=== PATIENT | male | born 1985 | race Caucasian/White ===

== ENCOUNTER → 2018-01-20 | Outpatient (CLI) | payer OTHER ==
--- NOTE | 2018-01-20 13:56 | XR ---
EXAMINATION TYPE: XR hand complete LT DATE OF EXAM: 01/20/2018 CLINICAL HISTORY: Pain and swelling TECHNIQUE: Frontal, lateral and oblique images of the left hand are obtained. COMPARISON: None. FINDINGS: There is no acute fracture/dislocation evident in the left hand. The joint spaces in the l eft hand appear within normal limits. The overlying soft tissue appears unremarkable. IMPRESSION: Unremarkable study.
== END ==
LOC: RADXRMAIN 13:19
PROVIDERS: ATTEND Emergency Medicine
DX: M65.842 Other synovitis and tenosynovitis, left hand (principal)

== ENCOUNTER 2018-11-06 17:38 | Emergency (ER) | payer OTHER ==
[2018-11-06 17:52] VITALS: TEMP 98.1
--- NOTE | 2018-11-06 18:36 | XR ---
EXAMINATION TYPE: XR foot limited RT DATE OF EXAM: 11/06/2018 COMPARISON: NONE HISTORY: Pain TECHNIQUE: 2 views FINDINGS: There is nondisplaced fracture of the distal shaft of the proximal phalanx of the little to e. There is a mild valgus deformity. There is no dislocation. IMPRESSION: Fracture of the little toe as above.
[2018-11-06] MEDS ORDERED: LIDOCAINE 1% INJ 10MG/ML (20 ML MDV) SQ ONE (19:05)
[2018-11-06 19:25] VITALS: BP 122/76; PULSE 69; RESP 16
--- NOTE | 2018-11-06 20:06 | ED ---
General Adult HPI - General Chief complaint: Extremity Injury, Lower Stated complaint: toe injury Time Seen by Provider: 11/06/18 17:54 Source: patient Mode of arrival: ambulatory Limitations: no limitations - History of Present Illness Initial comments: Patient is a 33-year-old male presenting to emergency Department with a stub right little toe. Patient reports he stubbed his right little toe earlier today on the couch. Patient reports a bony deformity of the fifth right toe. Patient reports mild pain that is exacerbated when palpating the toe. Patient reports decreased range of motion. Patient denies edema or skin discoloration in the area of injury. Patient denies taking any [id number] medication to alleviate the symptoms. - Related Data Previous Rx's Medication Instructions Recorded Cyclobenzaprine [Flexeril] 10 mg PO TID PRN #15 tab 02/09/15 Ibuprofen [Motrin] 600 mg PO Q8HR PRN #30 tab 02/09/15 Allergies Allergy/AdvReac Type Severity Reaction Status Date / Time No Known Allergies Allergy Verified 11/06/18 17:53 Review of Systems ROS Statement: Those systems with pertinent positive or pertinent negative responses have been documented in the HPI. ROS Other: All systems not noted in ROS Statement are negative. Past Medical History Past Medical History: No Reported History History of Any Multi-Drug Resistant Organisms: None Reported Past Surgical History: Orthopedic Surgery Past Psychological History: No Psychological Hx Reported Smoking Status: Current every day smoker Past Alcohol Use History: Rare Past Drug Use History: None Reported General Exam - General Exam Comments Initial Comments: General: Well-developed well-nourished distress HEENT: Normocephalic/atraumatic, PERLL, pharynx erythema, swallowing well, EAC no erythema, no exudates, TM clear, no cervical lymph nodes Neck: Supple, nontender, trachea midline Chest/Lungs: Normal respirations, no signs of respiratory distress clear to ausc ultation bilaterally no wheezes, rales, rhonchi Cardiac: Regular rate and rhythm, normal S1-S2, no murmurs rubs or gallops Abdomen/GI: Soft nontender, bowel sounds equal or quadrant x4, no guarding, no rebound no CVA tenderness Musculoskeletal: Tenderness with palpation on the right fifth toe, bony deformity and lateral deviation of the right fifth toe, limited range of motion due to pain, +2 dorsalis pedis and posterior tibialis, no edema or erythema noted to the site of injury, Skin: [Warmth, no rashes or lesions, no cyanosis or diaphoresis] Neurologic: [AAO x 3, CN 2-12 intact, ] Psychiatric: [Mood and affect normal, judgment normal] Limitations: no limitations Course Vital Signs 11/06/18 11/06/18 11/06/18 17:46 19:24 20:19 Temperature 98.1 F 98.1 F Pulse Rate 81 69 69 Respiratory 18 16 16 Rate Blood Pressure 136/85 122/76 122/76 O2 Sat by Pulse 99 97 97 Oximetry Procedures - Orthopedic Fracture Reduction Fracture #1 Consent Obtained: verbal consent Side: left Fracture Reduction Location: toe (Fifth right) Analgesia: digital block Technique: direct manipulation Post-Reduction Neuro Exam: intact Post-Reduction Vascular Exam: intact Patient Tolerated Procedure: well - Orthopedic Splinting/Casting Injury #1 Side: right Lower Extremity Injury Location: toe (5th toe) Lower Extremity Immobilizer: post-op shoe, arthur tape Medical Decision Making - Medical Decision Making Patient is a 33-year-old male presenting to emergency Department with a stubborn right little toe. X-ray is showing a closed fracture of the proximal phalanges of the right fifth toe. The toe was reduced back in place using local anesthesia. The toe was arthur taped to the fourth digit and patient was given a postop shoe. Patient advised to follow-up with orthopedics. Patient advised to alternate between Tylenol and ibuprofen for pain control, apply compress to minimize pain. Strict return parameters were thoroughly discussed the patient was understanding and agreeable. Case discussed with physician. Disposition Clinical Impression: Fracture of fifth toe, right, closed Disposition: HOME SELF-CARE Condition: Stable Instructions (If sedation given, give patient instructions): Toe Fracture (ED) Additional Instructions: Please follow with orthopedics. Please return to emergency department if symptoms worsen. Is patient prescribed a controlled substance at d/c from ED?: No Referrals: None,Stated [Primary Care Provider] - 1-2 days Phill Mandujano DO [Doctor of Osteopathic Medicine] - 1-2 days Time of Disposition: 20:06
== END 2018-11-06 20:22 | disposition home or self-care (01) ==
LOC: EC 17:38
DX: S92.511A Displaced fracture of proximal phalanx of right lesser toe(s), initial encounter for closed fracture (principal); F17.200 Nicotine dependence, unspecified, uncomplicated; W22.8XXA Striking against or struck by other objects, initial encounter
CPT/HCPCS: 73620; 99283; 28515; J2001

== ENCOUNTER 2021-09-23 21:37 | Emergency (ER) | payer OTHER ==
[2021-09-23 21:51] VITALS: BP 148/85; PULSE 81; RESP 16; TEMP 98
[2021-09-23] MEDS ORDERED: DIPH,PERTUS(ACELL)TETVAC-LF 0.5 ML VIAL IM ONE (23:12)
[2021-09-23] MEDS ORDERED: LIDOCAINE 1% INJ 10MG/ML (5 ML VIAL-PF) SQ ONE (23:38)
--- NOTE | 2021-09-24 00:14 | ED ---
Wound/Laceration HPI - General Chief Complaint: Wound/Laceration Stated Complaint: Laceration R Hand @1300 Time Seen by Provider: 09/23/21 22:54 Source: patient Mode of arrival: ambulatory Limitations: no limitations - History of Present Illness Initial Comments: Patient is a 28-year-old male presenting with chief complaint of laceration. Patient cut his right thumb at work on a pipe at 1:00 today. He attempted to close the wound with superglue. Later on in the afternoon the wound began bleeding profusely, he sought attention in the ER. He does not remember the date of his last tetanus. Denies any numbness, tingling, weakness, loss of range of motion. - Related Data Previous Rx's Medication Instructions Recorded Cyclobenzaprine [Flexeril] 10 mg PO TID PRN #15 tab 02/09/15 Ibuprofen [Motrin] 600 mg PO Q8HR PRN #30 tab 02/09/15 Allergies Allergy/AdvReac Type Severity Reaction Status Date / Time No Known Allergies Allergy Verified 09/23/21 21:51 Review of Systems ROS Statement: Those systems with pertinent positive or pertinent negative responses have been documented in the HPI. ROS Other: All systems not noted in ROS Statement are negative. Past Medical History Past Medical History: No Reported History History of Any Multi-Drug Resistant Organisms: None Reported Past Surgical History: Orthopedic Surgery Past Psychological History: No Psychological Hx Reported Smoking Status: Current every day smoker Past Alcohol Use History: Rare Past Drug Use History: None Reported General Exam Limitations: no limitations General appearance: alert, in no apparent distress Head exam: Present: atraumatic, normocephalic, normal inspection Eye exam: Present: normal appearance, EOMI. Absent: scleral icterus, periorbital swelling Neck exam: Present: normal inspection Neurological exam: Present: alert, oriented X3, CN II-XII intact Psychiatric exam: Present: normal affect, normal mood Skin exam: Present: warm, dry, normal color. Absent: rash Expanded Type of lesion: Present: laceration (2 cm curved laceration to the distal end of the right thumb) Course Vital Signs 09/23/21 21:49 Temperature 98 F Pulse Rate 81 Respiratory 16 Rate Blood Pressure 148/85 O2 Sat by Pulse 99 Oximetry Procedures - Laceration Laceration #1 Consent Obtained: verbal consent Indication: laceration Site: hand Size (cm): 2 Description: irregular Depth: simple, single layer Anesthetic Used: lidocaine 1% Anesthesia Technique: local infiltration Amount (mls): 3 Pre-repair: wound explored, irrigated extensively, deep structures intact Type of Sutures: nylon Size of Sutures: 4-0 Number of Sutures: 4 Technique: simple, interrupted Patient Tolerated Procedure: well Medical Decision Making - Medical Decision Making Patient is a 36-year-old male presenting with chief complaint of laceration to the right thumb. This was obtained this afternoon, he attempted to close the wound superglue, however the wound opened back up and began bleeding again. On examination he has full sensation, strength, range of motion. Wound was soaked in sterile water and iodine, and superglue was removed. No foreign body was seen on inspection. Finger was anesthetized with 1% lidocaine without epi, 4 simple interrupted sutures were applied using 4-0 nylon. Patient's tetanus is updated today. Patient tolerated the procedure well. Educated on signs of infection. Follow-up with PCP in one week. Sutures may be removed in 10-14 days. I discussed return parameters and answered all questions. Patient conveyed verbal understanding and agreed to the plan. My attending is Dr. Heck. Disposition Clinical Impression: Laceration Disposition: HOME SELF-CARE Condition: Good Instructions (If sedation given, give patient instructions): Care For Your Stitches (ED), Finger Laceration (ED) Additional Instructions: Sutures may be removed in 10-14 days. This may be done this ER, your local urgent care, or your PCP. Report back to ER if any new or worsening symptoms. Monitor for signs of infection, including but not limited to redness, swelling, discharge, warmth, fever, chills. Keep the wound clean and dry and covered. Is patient prescribed a controlled substance at d/c from ED?: No Referrals: None,Stated [Primary Care Provider] - 10/01/21 Time of Disposition: 00:14
== END 2021-09-24 00:38 | disposition home or self-care (01) ==
LOC: EC 21:37
DX: S61.011A Laceration without foreign body of right thumb without damage to nail, initial encounter (principal); F17.200 Nicotine dependence, unspecified, uncomplicated; Z23 Encounter for immunization; W26.8XXA Contact with other sharp object(s), not elsewhere classified, initial encounter; Y99.0 Civilian activity done for income or pay
CPT/HCPCS: 90715; 99282; 12001; 90471; J2001

== ENCOUNTER 2023-08-07 06:40 | Emergency (ER) | payer SELFPAY ==
[2023-08-07 07:05] VITALS: RESP 18
--- NOTE | 2023-08-07 07:07 | ED ---
Upper Extremity HPI - General Chief Complaint: Extremity Injury, Upper Stated Complaint: left pinky pain Time Seen by Provider: 08/07/23 06:47 Source: patient, RN notes reviewed Mode of arrival: ambulatory Limitations: no limitations - History of Present Illness Initial Comments: This is a 38-year-old male who presents to the emergency department for an injury to the left pinky finger. States that he was outside getting ready to go hunting and he slipped in mud. He tried to catch himself with his hands and in the process he injured his left pinky finger. He is still able to move it, but states that it is painful and appears deformed. Denies hitting his head or sustaining any other injuries. - Related Data Previous Rx's Medication Instructions Recorded Cyclobenzaprine [Flexeril] 10 mg PO TID PRN #15 tab 02/09/15 Ibuprofen [Motrin] 600 mg PO Q8HR PRN #30 tab 02/09/15 Allergies Allergy/AdvReac Type Severity Reaction Status Date / Time No Known Allergies Allergy Verified 09/23/21 21:51 Review of Systems ROS Statement: Those systems with pertinent positive or pertinent negative responses have been documented in the HPI. ROS Other: All systems not noted in ROS Statement are negative. Past Medical History Past Medical History: No Reported History History of Any Multi-Drug Resistant Organisms: None Reported Past Surgical History: Orthopedic Surgery Past Psychological History: No Psychological Hx Reported Smoking Status: Current every day smoker Past Alcohol Use History: Rare Past Drug Use History: None Reported General Exam Limitations: no limitations General appearance: alert, in no apparent distress Head exam: Present: atraumatic, normocephalic, normal inspection Respiratory exam: Present: normal lung sounds bilaterally. Absent: respiratory distress, wheezes, rales, rhonchi, stridor Cardiovascular Exam: Present: regular rate, normal rhythm, normal heart sounds. Absent: systolic murmur, diastolic murmur, rubs, gallop, clicks Neurological exam: Present: alert, oriented X3, CN II-XII intact Psychiatric exam: Present: normal affect, normal mood Skin exam: Present: warm, dry, intact, normal color. Absent: rash Course Vital Signs 08/07/23 08/07/23 08/07/23 06:40 08:25 09:31 Temperature 97.8 F 98.1 F 98.1 F Pulse Rate 84 87 74 Respiratory 18 18 18 Rate Blood Pressure 134/86 135/87 142/98 O2 Sat by Pulse 97 97 97 Oximetry Procedures - Nerve Block Consent Obtained: verbal consent Local Anesthetic Used: Other (Lidocaine 1% with Sensorcaine 0.5%) Amount of anesthesia used: 5 Side: left Nerve Blocks: digital Procedure Successful: Yes - Orthopedic Joint Reduction Joint #1 Consent Obtained: verbal consent Side: left Joint Reduction Location: finger Analgesia: digital block Local Anesthetic Used: Lidocaine 1%, Bupivacaine 0.5% Amount of Anesthetic Used (mLs): 5 - Orthopedic Splinting/Casting Injury #1 Side: left Upper Extremity Injury Location: finger Upper Extremity Immobilizer: aluminum form splint Medical Decision Making - Medical Decision Making This is a 38 year old male who presents to the emergency department for an injury to the left pinky finger. Was pt. sent in by a medical professional or institution? @ -No Did you speak to anyone other than the patient for history? @ -No Did you review nursing and triage notes? @ -Yes, and I agree, it is accurate with regards to the patient's symptoms. Were old charts reviewed? @ -No Differential Diagnosis? @ -Differential Musculoskeletal: Muscular strain, contusion, ligament sprain, fracture, arthritis, septic arthritis, bursitis, cellulitis, muscle spasm, nerve compression, DVT, arterial occlusion, herpes zoster, electrolyte abnormality, tumor.... This is not meant to be in all inclusive list EKG interpreted by me (3pts min.)? @ -Not obtained X-rays interpreted by me (1pt min.)? @ -X-ray of the left fifth finger obtained. My interpretation identifies a fracture of the middle phalanx with displacement. CT interpreted by me (1pt min.)? @ -Not obtained U/S interpreted by me (1pt. min.)? @ -Not obtained What testing was considered but not performed? (CT, X-rays, U/S, labs)? Why? @ -None What meds were considered but not given? Why? @ -None Did you discuss the management of the patient with other professionals? @ -No Did you reconcile home meds? @ -No Was smoking cessation discussed for >3mins.? @ -I discussed smoking cessation for greater than 3 minutes. The risk of smoking were discussed with the patient including but not limited to risks of cancer, stroke, coronary artery disease and COPD. Also discussed with patient were multiple methods of quitting smoking. Lastly we discussed the financial cost of smoking. Was critical care preformed (if so, how long)? @ -No Were there social determinants of health that impacted care today? How? (Homelessness, low income, unemployed, alcoholism, drug addiction, transportation, low edu. Level, literacy, decrease access to med. care, [facility], rehab)? @ -No Was there de-escalation of care discussed even if they declined? (Discuss DNR or withdrawal of care, Hospice)? @ -No What co-morbidities impacted this encounter? (DM, HTN, Smoking, COPD, CAD, Cancer, CVA, Hep., AIDS, mental health diagnosis, sleep apnea, morbid obesity)? @ -Smoking Was patient admitted / discharged? @ -Discharged. X-ray of the left pinky finger demonstrates a comminuted burst type intra-articular fracture of the base of the fifth middle phalanx with fragments distracted anteriorly and posteriorly. Digital block was performed and the fracture was reduced with improved alignment. Aluminum splint was applied to the finger and the hand was bandaged as well. Advised ibuprofen and Tylenol as needed for pain relief. Information for follow-up with orthopedics was provided and the patient was discharged home in stable condition. Undiagnosed new problem with uncertain prognosis? @ -None Drug Therapy requiring intensive monitoring for toxicity (Heparin, Nitro, Insulin, Cardizem)? @ -None Were any procedures done? @ -Digital block and joint/fracture reduction Diagnosis/symptom? @ - Fracture of left fifth phalanx Acute, or Chronic, or Acute on Chronic? @ -Acute Uncomplicated (without systemic symptoms) or Complicated (systemic symptoms)? @ -Uncomplicated Side effects of treatment? @ -None Exacerbation, Progression, or Severe Exacerbation] @ -Not applicable Poses a threat to life or bodily function? @ -This will limit his use of the left hand for the mean time. Return precautions reviewed in depth, the patient is instructed to return to the emergency department with any new, worsening, or concerning symptoms. Patient verbalized understanding. This case was discussed in detail with the attending ED physician, Dr. Davenport. Presentation, findings, and treatment plan discussed in detail as well. - Radiology Data Radiology results: report reviewed, image reviewed Disposition Clinical Impression: Nicotine dependence, Displaced fracture of phalanx of finger Disposition: HOME SELF-CARE Instructions (If sedation given, give patient instructions): Finger Fracture (ED) Additional Instructions: Return to the emergency department with any new, worsening, or concerning symptoms. Alternate with ibuprofen and Tylenol as needed for pain relief. Contact orthopedics as listed below first thing tomorrow morning for a follow-up appointment. Let them know that you were diagnosed with a comminuted burst type intra-articular fracture of the pinky finger. I did list both orthopedic offices below in the event one of them can get you in faster. Is patient prescribed a controlled substance at d/c from ED?: No Referrals: Alyce Green DO [Doctor of Osteopathic Medicine] - 1-2 days None,Stated [Primary Care Provider] - 1-2 days Marquez Rivas DO [Doctor of Osteopathic Medicine] - 1-2 days Time of Disposition: 09:22
[2023-08-07] MEDS: ACETAMINOPHEN TAB 500 MG TAB PO STA (07:09)
[2023-08-07] MEDS: IBUPROFEN 800 MG TAB PO STA (07:11)
[2023-08-07] MEDS: LIDOCAINE 1% INJ 10MG/ML (20 ML MDV) SQ ONE (07:46)
[2023-08-07 08:34] VITALS: TEMP 98.1
--- NOTE | 2023-08-07 08:50 | XR ---
EXAMINATION TYPE: XR finger LT DATE OF EXAM: 08/07/2023 7:12 AM CLINICAL INDICATION:Male, 38 years old with history of Pinky finger injury; left fifth digit pain fro m fall COMPARISON: None TECHNIQUE: 3 views left small finger FINDINGS: There is a burst type fracture of the proximal aspect of the middle phalanx with intra-articular exte nsion. Lateral view shows major anterior and posterior fragments distracted from the site of fracture and there is foreshortening of the bone forming a pseudoarthrosis at the PIP joint between the major distal shaft fragment and the head of the proximal phalanx. No gross dislocation. Soft tissue swelli ng regional to the fracture. No radiopaque foreign body is seen. IMPRESSION: Comminuted burst type intra-articular fracture of the base of the fifth middle phalanx with fragments distracted anteriorly and posteriorly.
[2023-08-07] MEDS: ACET/COD 300 MG/30 MG STARTER PACK 6 TAB BTL PO STA (09:29)
[2023-08-07 09:55] VITALS: BP 142/98; PULSE 74
--- NOTE | 2023-08-07 10:00 | XR ---
EXAMINATION TYPE: XR finger LT DATE OF EXAM: 08/07/2023 9:06 AM CLINICAL INDICATION:Male, 38 years old with history of Postreduction; [facility] COMPARISON: Earlier today 7:12 AM TECHNIQUE: Single frontal view of the left fifth digit obtained post reduction. FINDINGS: There is slightly improved alignment of the fragments related to fracture of the proximal fifth middl e phalanx. Remainder of exam unchanged. IMPRESSION: Slightly improved alignment of the middle phalanx fracture on this single frontal view.
== END 2023-08-07 09:33 | disposition home or self-care (01) ==
LOC: EC 06:40
DX: S62.627A Displaced fracture of middle phalanx of left little finger, initial encounter for closed fracture (principal); F17.200 Nicotine dependence, unspecified, uncomplicated; W18.40XA Slipping, tripping and stumbling without falling, unspecified, initial encounter
CPT/HCPCS: 99284; 99406; 73140; 26725; J2001

== ENCOUNTER 2023-08-15 12:01 | Day surgery (SDC) | payer OTHER ==
[~2023-08-15 12:01] MED LIST: HYDROmorphone 0.5 MG/0.5 ML SYRINGE IVP PRN; Pre Op ABX Message 1 EACH MISC MISCELLANE ONE
[2023-08-15] MEDS: LACTATED RINGERS 1,000 ML IV SCH (12:34)
[2023-08-15] MEDS: DEXAMETHASONE SOD PHOSPHATE 4 MG/ML 1 ML VIAL IV ONE (12:48)
[2023-08-15] MEDS: ONDANSETRON 4 MG/2 ML VIAL IVP ONE (12:48)
[2023-08-15 12:52] VITALS: TEMP 97.4
[2023-08-15] MEDS ORDERED: fentaNYL (PF) 50 MCG/ML 2 ML AMP ONE (13:56)
[2023-08-15] MEDS ORDERED: KETAMINE HCL IN 0.9 % NACL 50 MG/5 ML SYRINGE ONE (13:56)
[2023-08-15] MEDS ORDERED: MIDAZOLAM 2 MG/2 ML VIAL ONE (13:56)
[2023-08-15] MEDS ORDERED: LIDOCAINE 1% INJ 10MG/ML (20 ML MDV) ONE (13:56)
[2023-08-15] MEDS ORDERED: PROPOFOL 10 MG/ML 20 ML VIAL IV ONE (13:56)
[2023-08-15] MEDS: LIDOCAINE 1%-EPI 1:100,000 20 ML VIAL INTRAARTIC ONE (14:00)
[2023-08-15] MEDS: SODIUM CHLORIDE 0.9% 50 ML with ceFAZolin 2,000 MG IV ONE (14:00)
[2023-08-15 15:24] VITALS: BP 148/99; PULSE 79; RESP 16
--- NOTE | 2023-08-16 15:30 | P.OP ---
Date of Procedure: 08/15/23 Preoperative Diagnosis: Left small finger middle phalanx fracture Postoperative Diagnosis: same Procedure(s) Performed: left small finger PIP fusion Implants: SYnthes headless compression screw 2.5 x 23mm Anesthesia: MAC, local Surgeon: Alyce Green Maxillofacial Surgeon #1: Coby Mendoza Estimated Blood Loss (ml): 2 Pathology: none sent Condition: stable Disposition: PACU Indications for Procedure: Griffin is a 38 yr old male who fell onto his hand on 08/07/23. He sustained a pilon fracture to the middle phalanx of his small finger. The proximal articular surface is communited and displaced. We had a long discussion about an ORIF vs acute fusion. The patient would like to proceed with the most predictable procedure and we have decided to proceed with a fusion. Operative Findings: Comminuted fracture of the middle phalanx involving the articular surface. Description of Procedure: The patient, operative extremity, and procedure were identified in the preop holding area. After informed consent was obtained, the patient was brought back to the OR and a digital block was performed. The extremity was then prepped and draped in normal sterile fashion with a tourniquet along the brachium. A formal timeout was performed and the tourniquet was inflated. A curvilinear incision was made over the dorsum of the small finger over the PIP joint. The extensor tendon was split longitudinally over the proximal phalanx. The digit was hyperflexed and the dorsal piece of the fracture was removed. Examination of the fracture revealed several comminuted pieces of the articular surface. These were removed. The distal aspect of the proximal phalanx was then prepared. The cartilage was scraped away with a ronguer. The joint was then positioned in about 60 degrees of flexion and a guide wire was introduced. The positioning was confirmed on fluoro. This was followed by a cannulated drill and countersink. a 24mm screw was deemed appropriate with the measuring tool. The screw was placed over the guide wire and introduced across the prepped joint. Metaphaseal bone from the removed fragments was packed into the joint. There was good compression felt. Before the screw was completely flush, there was a small crack noted in the proximal phalanx. This did not extend through the entirety of the cortex. The decision was made not to advance the screw any further to prevent catastrophic fracture of the construct. The positioning of the finger was judged clinically and there was no malrotation. The extensor tendon was repaired over the screw with 4.0 monocryl. The tourniquet was let down and the wound was closed with 6.0 chromic suture. Wuund was dressed and placed in an ulnar gutter splint.
== END 2023-08-15 15:40 | disposition home or self-care (01) ==
LOC: OR 12:01
PROVIDERS: ATTEND Orthopaedic Surgery Hand Surgery
DX: S62.627A Displaced fracture of middle phalanx of left little finger, initial encounter for closed fracture (principal); F17.210 Nicotine dependence, cigarettes, uncomplicated; X58.XXXA Exposure to other specified factors, initial encounter
CPT/HCPCS: 26860; C1713; J1100; J2405; J0690